=== PATIENT | male | born 1960 | race Caucasian/White ===

== ENCOUNTER 2023-01-28 08:43 | Outpatient (OUT) | payer OTHER, SELFPAY ==
--- NOTE | 2023-01-28 08:57 | XR_ITS ---
The [address] [address] Patient Name: BALDO PURDY MRN: [id number] date: 1960 Sex: M Assigned Patient Location: RAD Current Patient Location: [facility] Accession/Order Number: [id number] Exam Date: 01/28/2023 09:00 Report Date: 01/28/2023 09:34 At the request of: NON-STAFF PHYSICIAN Procedure: XR foot LT min 3V PROCEDURE: XR foot LT min 3V HISTORY: Pain of left heel M79.672 COMPARISON: None. FINDINGS: BONES: 5 mm calcaneal plantar spur. No fracture, acute abnormality, or significant arthropathy. SOFT TISSUES:No visible soft tissue swelling. EFFUSION:None visible. OTHER: Negative. IMPRESSION: 1. No acute bone abnormality. 2. Small, 5 mm calcaneal plantar spur of uncertain clinical significance. 3. No radiopaque foreign body within the soft tissues. Electronically authenticated by: ADILIA BRISENO Date: 01/28/2023 09:34
== END 2023-01-28 08:44 ==
LOC: RAD 08:49
DX: M79.672 Pain in left foot (principal)
CPT/HCPCS: 73630

== ENCOUNTER 2023-02-19 15:15 | Outpatient (RCR) | payer OTHER, SELFPAY | END 2023-03-24 15:37 | disposition home or self-care (01) | LOC: PT 15:15 | PROVIDERS: Visit Provider Physician Assistant | DX: M72.2 Plantar fascial fibromatosis (principal); M24.575 Contracture, left foot; M24.574 Contracture, right foot | CPT/HCPCS: 97014; 97035; 97110; 97140; 97161 ==